=== PATIENT | female | born 1955 | race African-American/Black ===

== ENCOUNTER 2017-08-05 05:50 | Inpatient (IN) ==
[2017-07-25 11:49] LABS: Basophils % 0.4 % (0.0-0.8); Eosinophils # 0.1 10*3/uL (0.0-0.87); Hematocrit 32.8 VOL% (35.7-47.0); Hemoglobin 10.5 GM/DL (12.0-16.0); Immature Granulocytes % 0.4 %; Immature Granulocytes Absolute 0.02 #; Lymphocytes # 2.7 10*3/uL (1.4-4.0); Lymphocytes % 54.3 % (21.3-54.2); Mean Corpuscular Hemoglobin 31 PG (27-34); Mean Corpuscular Volume 98.2 FL (87-102); Mean Platelet Volume 9.8 FL (9.6-12.0); Monocytes # 0.5 10*3/uL (0.11-0.8); Monocytes % 9.8 % (1.7-12.7); Neutrophils # 1.7 10*3/uL (1.4-7.4); Neutrophils % 34.1 % (38.7-73.9); Platelet Count 297 T/CUMM (130-400); Red Blood Count 3.34 MC/CUMM (3.8-5.5); Red Cell Distribution Width 18.1 % (9.3-17.3); White Blood Count 4.9 T/CUMM (4-12)
[2017-07-25 12:10] LABS: Atypical Lymphocytes Few; Eosinophils 1 % (0-10); Hypochromasia 1+; Lymphocytes 63 % (20-55); Polychromasia Slight; Segmented Neutrophils 28 % (50-85); Total Cells Counted 100
[2017-07-25 12:11] LABS: Ovalocytes Slight
[2017-07-25 12:12] LABS: Macrocytosis 1+; Platelet Estimate Normal
[2017-07-25 12:16] LABS: Calcium 9.8 MG/DL (8.5-10.1); Osmolality,Calculated 278.4 MOS/KG (273-304)
[2017-08-05] MEDS ORDERED: DIAZEPAM 5 MG TABLET PO ONE (06:33)
[2017-08-05] MEDS ORDERED: PANTOPRAZOLE 40 MG TABLET PO ONE ×2 (06:33→06:43)
[2017-08-05] MEDS ORDERED: SCOPOLAMINE 1.5 MG PATCH TRANSDERM ONE ×2 (06:34→06:44)
[2017-08-05] MEDS ORDERED: DIAZEPAM 5 MG TABLET ONE (06:43)
[2017-08-05] MEDS: LACTATED RINGERS 1,000 ML IV SCH ×2 (06:50→09:00)
[2017-08-05] MEDS ORDERED: CLINDAMYCIN INJ 50 ML IV ONE (07:16)
[2017-08-05] MEDS ORDERED: BACITRACIN 50,000 UNIT VIAL ONE (07:17)
[2017-08-05] MEDS ORDERED: ACETAMINOPHEN 325 MG TABLET PO PRN (09:26)
[2017-08-05] MEDS ORDERED: ONDANSETRON 4 MG/2 ML VIAL IV PRN ×2 (09:26→10:36)
[2017-08-05] MEDS ORDERED: MUPIROCIN 2% OINT 22 GM TUBE TOP ONE (09:33)
[2017-08-05] MEDS ORDERED: fentaNYL 100 MCG/2 ML VIAL ONE (10:18)
[2017-08-05] MEDS ORDERED: SEVOFLURANE 1 UNIT/15 MINUTE INH ONE (10:18)
[2017-08-05] MEDS ORDERED: PROPOFOL 200 MG/20 ML VIAL IV ONE (10:18)
[2017-08-05] MEDS ORDERED: MIDAZOLAM 2 MG/2 ML VIAL ONE (10:19)
[2017-08-05] MEDS ORDERED: ePHEDrine 50 MG/ML AMP ONE (10:19)
[2017-08-05] MEDS ORDERED: ONDANSETRON 4 MG/2 ML VIAL ONE (10:20)
[2017-08-05] MEDS ORDERED: SUCCINYLCHOLINE 200 MG/10 ML VIAL ONE (10:20)
[2017-08-05] MEDS ORDERED: ROCURONIUM 100 MG/10 ML VIAL IV ONE (10:20)
[2017-08-05] MEDS ORDERED: LACTATED RINGERS 1,000 ML IV ONE (10:20)
[2017-08-05] MEDS ORDERED: PHENYLEPHRINE 10 MG/1 ML VIAL IV ONE (10:20)
[2017-08-05] MEDS ORDERED: RACEPINEPHRINE 0.5 ML NEB RESP TX ONE ×2 (10:27→10:36)
[2017-08-05] MEDS ORDERED: HYDROmorphone 2 MG/1 ML VIAL IV PRN (10:36)
[2017-08-05] MEDS: MORPHINE 10 MG/1 ML VIAL IV PRN ×5 (10:40→11:00)
[2017-08-05] MEDS: MORPHINE 4 MG/1 ML VIAL IV PRN ×3 (11:37→22:00)
[2017-08-05] MEDS: CLINDAMYCIN INJ 900 MG in PREMIX 1 EACH IV SCH ×3 (12:00→23:02)
[2017-08-06 03:55] LABS: Basophils % 0.2 % (0.0-0.8); Eosinophils # 0.1 10*3/uL (0.0-0.87); Eosinophils % 0.8 % (0.00-10.9); Hematocrit 27.8 VOL% (35.7-47.0); Hemoglobin 8.8 GM/DL (12.0-16.0); Immature Granulocytes % 0.5 %; Immature Granulocytes Absolute 0.03 #; Lymphocytes # 2.3 10*3/uL (1.4-4.0); Lymphocytes % 35.4 % (21.3-54.2); Mean Corpuscular HGB Conc 31.7 GM/DL (32-36); Mean Corpuscular Hemoglobin 31 PG (27-34); Mean Corpuscular Volume 98.6 FL (87-102); Mean Platelet Volume 10.8 FL (9.6-12.0); Monocytes # 0.7 10*3/uL (0.11-0.8); Monocytes % 10.5 % (1.7-12.7); Neutrophils # 3.4 10*3/uL (1.4-7.4); Neutrophils % 52.6 % (38.7-73.9); Platelet Count 254 T/CUMM (130-400); Red Blood Count 2.82 MC/CUMM (3.8-5.5); Red Cell Distribution Width 18.1 % (9.3-17.3); White Blood Count 6.4 T/CUMM (4-12)
[2017-08-06 04:30] LABS: Calcium 9.3 MG/DL (8.5-10.1); Osmolality,Calculated 278.7 MOS/KG (273-304); Potassium 3.7 MMOL/L (3.5-5.1)
[2017-08-06] MEDS: diphenhydrAMINE 50 MG/1 ML VIAL IV PRN (04:39)
[2017-08-06] MEDS ORDERED: CLINDAMYCIN INJ 900 MG in PREMIX 1 EACH IV SCH (06:30)
[2017-08-06] MEDS: CLINDAMYCIN INJ 900 MG in PREMIX 1 EACH IV SCH (06:39)
[2017-08-06] MEDS: LACTATED RINGERS 1,000 ML IV SCH (07:21)
[2017-08-06] MEDS: PANTOPRAZOLE 40 MG TABLET PO SCH (08:55)
[2017-08-06] MEDS: hydrOXYzine HCL 25 MG TABLET PO PRN ×3 (10:10→21:10)
[2017-08-07] MEDS: PANTOPRAZOLE 40 MG TABLET PO SCH (08:57)
[2017-08-07 09:23] LABS: Calcium 8.9 MG/DL (8.5-10.1); Osmolality,Calculated 282.4 MOS/KG (273-304); Potassium 3.9 MMOL/L (3.5-5.1)
[2017-08-07] MEDS: hydrOXYzine HCL 25 MG TABLET PO PRN ×3 (11:02→23:11)
[2017-08-07] MEDS: LACTATED RINGERS 1,000 ML IV SCH (19:57)
[2017-08-08] MEDS: diphenhydrAMINE 50 MG/1 ML VIAL IV PRN (02:44)
[2017-08-08 05:58] LABS: Basophils % 0.3 % (0.0-0.8); Eosinophils # 0.1 10*3/uL (0.0-0.87); Eosinophils % 1.9 % (0.00-10.9); Hematocrit 24.6 VOL% (35.7-47.0); Hemoglobin 7.7 GM/DL (12.0-16.0); Immature Granulocytes % 0.4 %; Immature Granulocytes Absolute 0.03 #; Lymphocytes # 2.7 10*3/uL (1.4-4.0); Mean Corpuscular HGB Conc 31.3 GM/DL (32-36); Mean Corpuscular Hemoglobin 32 PG (27-34); Mean Corpuscular Volume 101.7 FL (87-102); Monocytes # 0.7 10*3/uL (0.11-0.8); Monocytes % 10.1 % (1.7-12.7); Neutrophils # 3.2 10*3/uL (1.4-7.4); Neutrophils % 47.3 % (38.7-73.9); Platelet Count 213 T/CUMM (130-400); Red Blood Count 2.42 MC/CUMM (3.8-5.5); Red Cell Distribution Width 18.2 % (9.3-17.3); White Blood Count 6.7 T/CUMM (4-12)
[2017-08-08 06:21] LABS: Calcium 9.1 MG/DL (8.5-10.1); Osmolality,Calculated 286.8 MOS/KG (273-304); Potassium 3.9 MMOL/L (3.5-5.1)
[2017-08-08] MEDS: hydrOXYzine HCL 25 MG TABLET PO PRN ×3 (09:17→22:44)
[2017-08-08] MEDS: PANTOPRAZOLE 40 MG TABLET PO SCH (09:17)
[2017-08-08] MEDS: MORPHINE 4 MG/1 ML VIAL IV PRN (09:29)
[2017-08-08] MEDS: LACTATED RINGERS 1,000 ML IV SCH (09:34)
[2017-08-09] MEDS: hydrOXYzine HCL 25 MG TABLET PO PRN (06:41)
[2017-08-09 08:24] LABS: Hematocrit 24.6 VOL% (35.7-47.0); Hemoglobin 7.8 GM/DL (12.0-16.0)
[2017-08-09] MEDS: PANTOPRAZOLE 40 MG TABLET PO SCH (10:12)
[2017-08-09 11:21] VITALS: BP 141/78
== END 2017-08-09 12:20 | disposition home or self-care (01) | DRG 577 ==
LOC: N.OR 05:50 → N.SDSINP 05:52 → N.3E 11:24
PROVIDERS: ADMIT Surgery; ATTEND Surgery